=== PATIENT | male | born 1960 | race Hispanic/Latino ===

== ENCOUNTER 2024-08-27 06:11 | Day surgery (SDC) | payer OTHER ==
[2024-08-27] VITALS (10 sets, daily range): BP systolic 90–137; BP diastolic 52–70; PULSE 57–62; RESP 15–20; TEMP 97.3–98.1
[~2024-08-27] VITALS: Ht 162.6 cm; Wt 72.6 kg
[~2024-08-27 06:11] MED LIST: ASPI-449 PO; ATOR40TA71 PO; CLOP75TA32 PO; DAPA1TAB4 PO; EMPA10TA PO; ERGO500093 PO; FINE10TA PO; LOSA25TA41 PO; MECL-226 PO; PIOG15TA66 PO; SEMA1PEN3 SQ
[2024-08-27] MEDS: 0.9%NACL 1000ML 1,000 ML IV ONE (07:17)
[2024-08-27] MEDS ORDERED: proPOFol 10 MG/ML 20ML VIAL IV ONE (07:54)
--- NOTE | 2024-08-27 09:28 | NUR ---
Full and complete discharge instuctions with expectations given both verbally and in writingh to Patient and family. Patient denies c/o pain or problem. Tolerated fluids and voided in bathroom. PIV d/c'd with catheter tip intact. W/C to POV with Family to home.
== END 2024-08-27 09:20 | disposition home or self-care (01) ==
LOC: ENDO 06:11 → DAH 06:11 → ENDO 09:20
PROVIDERS: ATTEND Internal Medicine Gastroenterology
DX: D50.9 Iron deficiency anemia, unspecified (principal); K62.1 Rectal polyp; K57.30 Diverticulosis of large intestine without perforation or abscess without bleeding; K29.50 Unspecified chronic gastritis without bleeding; K22.89 Other specified disease of esophagus; K31.89 Other diseases of stomach and duodenum; R12 Heartburn; I10 Essential (primary) hypertension; E11.9 Type 2 diabetes mellitus without complications; E78.5 Hyperlipidemia, unspecified; Z86.2 Personal history of diseases of the blood and blood-forming organs and certain disorders involving the immune mechanism; Z79.899 Other long term (current) drug therapy; Z98.890 Other specified postprocedural states
CPT/HCPCS: 82948 ×2; 43239; 45385; J7030; J2704; A4620; A4215; A4223; A7002; A4222; A4221; A4663; A4606; J3490